=== PATIENT | male | born 1965 | race Caucasian/White ===

== ENCOUNTER 2021-07-28 00:53 | Day surgery (SDC) | payer BC, SELFPAY ==
[2021-07-16 14:32] VITALS: BMI 30.2
[2021-07-28 06:53] VITALS: BP 138/76; PULSE 73; RESP 16; TEMP 36.2; O2SAT 98; BMI 30.1
[2021-07-28] MEDS: LACTATED RINGERS 1,000 ML 150 ML IV CONT (07:07)
--- NOTE | 2021-07-28 07:09 | WPDANESEPPF ---
Anes - Initial Pre Proc Eval Procedure: Operation Date: 07/28/21 08:00 Proposed Procedures p Screening Colonoscopy - Tico Carcamo MD Date/Time: 07/28/21 07:09 Surgeon: Tico Carcamo MD Pre Op Diagnosis: hx of colon polyps z86.010 Patient Data Age: 56 Gender: M Height: 1.78 m Weight: 95.2 kg Last Vital Signs Temp 36.2 C L 07/28/21 06:53 Pulse 73 07/28/21 06:53 Resp 16 07/28/21 06:53 BP 138/76 07/28/21 06:53 Pulse Ox 98 07/28/21 06:53 Allergies Allergy/AdvReac Type Severity Reaction Status Date / Time amoxicillin Allergy Unknown Unknown Verified 07/28/21 06:52 Sulfa (Sulfonamide Allergy Unknown Unknown Verified 07/28/21 06:52 Antibiotics) Home Medications Medication Instructions Recorded Confirmed Type valacyclovir 500 mg tablet 500 mg PO DAILY 12/18/19 07/28/21 History diclofenac sodium 1.6 % topical 1 % TOPICAL 12/27/19 06/17/21 History gel packet fluticasone propionate 50 2 spray INTRANASAL DAILY 05/27/21 07/28/21 History mcg/actuation nasal spray,suspension loratadine 10 mg tablet 10 mg PO DAILY 05/27/21 07/28/21 History atorvastatin 40 mg tablet 40 mg PO QHS #90 tablet 06/02/21 07/28/21 Rx losartan 100 1 tablet PO DAILY #90 tablet 06/25/21 07/28/21 Rx mg-hydrochlorothiazide 25 mg tablet Patient hx anesthesia problems: none Family hx anesthesia problems: none Results Review: All pre-operative results and documents have been reviewed as part of the pre-operative evaluation. [facility] Past Medical History Medical History Bursitis of right hip 09/2008 Dyslipidemia Environmental allergies Essential (primary) hypertension GERD without esophagitis History of colon polyps RAFAT (obstructive sleep apnea) Recurrent genital herpes Umbilical hernia 2004 Surgical History Surgical History History of hernia surgery (~2005) History of tonsillectomy and adenoidectomy (~1966) [place] teeth extracted (~1979) Family History Family History Mother Family history of glaucoma Father Hypertension Family history of coronary artery disease Sibling Family history of cardiac disorder Grandparent Family history of lung cancer Family history of heart disease in male family member before age 55 Social History Social History Smoking status: Former smoker Tobacco type: cigarettes Second hand tobacco smoke exposure: No Smoking end date: 11/01/89 Alcohol intake: current Drinks per week: 10 Alcohol use details: socially Substance use: never Substance use type: does not use Living arrangements: with family Gender identity (if verbalized by the patient): Male Spiritual care concerns: No Agree to blood products: Yes Anes - Eval Final PreProcedure Day of Procedure 07/28/21 07:09 Patient weight: obese Heart: regular rate and rhythm Lungs: clear to auscultation Airway: Mallampati scale class II Neurological: alert and oriented Last oral intake: >/= 8 hours ASA classification: III Emergent: no Anesthetic plan: proceed Anesthesia type and monitoring: general GIVS and standard monitoring Results Review: All pre-operative results and documents have been reviewed as part of the pre-operative evaluation. Informed Consent: The patient's anesthetic plan and its attendant risks and benefits were discussed with the patient/family/POA. Questions were solicited and answers provided to the satisfaction of the patient/family/POA.
--- NOTE | 2021-07-28 07:17 | WPDGICN ---
Assessment and Plan Assessment and plan (1) History of colon polyps: Code(s): Z86.010 - Personal history of colonic polyps Status: Acute Assessment and Plan: Patient has a history of colon polyps last colonoscopy was 6 or 7 years ago. Plan is for surveillance colonoscopy at this time. Further recommendations will be given after endoscopy. GI Consult Note Consult date/time: 07/28/21 07:17 HPI: Damaris Rosales is a 56 year old male Presents for screening colonoscopy. Patient has a history of colon polyps. Most recently [address] Suarez. Patient reports his current weight appetite bowel movements are normal. Does have a prior history of inguinal hernia repair. He has had no bleeding. His family history is noncontributory. Review of Systems Review of Systems: All systems reviewed & are unremarkable except as noted in HPI and below PMFSH Past Medical History Medical History Bursitis of right hip 09/2008 Dyslipidemia Environmental allergies Essential (primary) hypertension GERD without esophagitis History of colon polyps RAFAT (obstructive sleep apnea) Recurrent genital herpes Umbilical hernia 2004 Surgical History Surgical History History of hernia surgery (~2005) History of tonsillectomy and adenoidectomy (~1966) [place] teeth extracted (~1979) Family History Family History Mother Family history of glaucoma Father Hypertension Family history of coronary artery disease Sibling Family history of cardiac disorder Grandparent Family history of lung cancer Family history of heart disease in male family member before age 55 Social History Social History Smoking status: Former smoker Tobacco type: cigarettes Second hand tobacco smoke exposure: No Smoking end date: 11/01/89 Alcohol intake: current Drinks per week: 10 Alcohol use details: socially Substance use: never Substance use type: does not use Living arrangements: with family Gender identity (if verbalized by the patient): Male Spiritual care concerns: No Agree to blood products: Yes Meds Home Medications and Allergies Home Medications Medication Instructions Recorded Confirmed Type valacyclovir 500 mg tablet 500 mg PO DAILY 12/18/19 07/28/21 History diclofenac sodium 1.6 % topical 1 % TOPICAL 12/27/19 06/17/21 History gel packet fluticasone propionate 50 2 spray INTRANASAL DAILY 05/27/21 07/28/21 History mcg/actuation nasal spray,suspension loratadine 10 mg tablet 10 mg PO DAILY 05/27/21 07/28/21 History atorvastatin 40 mg tablet 40 mg PO QHS #90 tablet 06/02/21 07/28/21 Rx losartan 100 1 tablet PO DAILY #90 tablet 06/25/21 07/28/21 Rx mg-hydrochlorothiazide 25 mg tablet Allergies Allergy/AdvReac Type Severity Reaction Status Date / Time amoxicillin Allergy Unknown Unknown Verified 07/28/21 06:52 Sulfa (Sulfonamide Allergy Unknown Unknown Verified 07/28/21 06:52 Antibiotics) Vital Signs Vital Signs - 24 hr 07/28/21 06:53 Temperature 97.2 F L Pulse Rate 73 Respiratory Rate 16 Blood Pressure 138/76 Pulse Oximetry 98 Exam Narrative: Physical exam reveals patient to be alert. Vital signs stable. HEENT exam is unremarkable. Patient is anicteric. Lungs are clear to auscultation and percussion. Heart is without murmur or extra sounds. Abdominal exam bowel sounds are present soft nontender with no organomegaly. Digital external rectal exam is normal.
[2021-07-28 08:00] VITALS: BP 112/61; PULSE 63; RESP 12; O2SAT 96
[2021-07-28 08:10] VITALS: BP 109/63; PULSE 57; RESP 17; O2SAT 100
[2021-07-28 08:20] VITALS: BP 114/63; PULSE 61; RESP 21; O2SAT 99
== END 2021-07-28 08:29 | disposition home or self-care (01) ==
PROVIDERS: PCP Family Medicine; Visit Provider Internal Medicine Gastroenterology
PROC: 0DJD8ZZ Inspection of Lower Intestinal Tract, Via Natural or Artificial Opening Endoscopic (ICD-10-PCS; CPT 45378; principal; 2021-07-28 08:00)
DX: Z12.11 Encounter for screening for malignant neoplasm of colon (principal); Z86.010 Personal history of colon polyps; K57.30 Diverticulosis of large intestine without perforation or abscess without bleeding; E78.5 Hyperlipidemia, unspecified; I10 Essential (primary) hypertension; K21.9 Gastro-esophageal reflux disease without esophagitis; G47.33 Obstructive sleep apnea (adult) (pediatric); Z87.891 Personal history of nicotine dependence; E66.9 Obesity, unspecified; Z68.30 Body mass index [BMI] 30.0-30.9, adult
CPT/HCPCS: 45378; J2704; J7120

== ENCOUNTER 2023-08-28 13:05 | Emergency (ER) | payer OTHER, SELFPAY ==
--- NOTE | 2023-08-28 13:09 | ED.WOUNDLAC ---
HPI - Wound/Laceration General Chief Complaint: Wound/Laceration Stated Complaint: Cut finger Time Seen by Provider: 08/28/23 13:09 Source: patient, RN notes reviewed and old records reviewed Mode of arrival: ambulatory Limitations: no limitations History of Present Illness HPI narrative: 58 year old male presents to the [facility] with a laceration to the dorsal aspect PIP joint right 5th finger. Happened approximately 3 hours prior to arrival. Per medical record last Tdap 2009. Patient unsure of if he has had 1 since. Bleeding is controlled. Full range of motion of the 5th finger Capillary refill under 2 seconds sensation intact Patient tetanus UTD: No (Per medical record 07/02/2010) Related Data Allergies Allergy/AdvReac Type Severity Reaction Status Date / Time amoxicillin Allergy Unknown Unknown Verified 08/28/23 13:52 Sulfa (Sulfonamide Allergy Unknown Unknown Verified 08/28/23 13:52 Antibiotics) Review of Systems Review of Systems: All systems reviewed & are unremarkable except as noted in HPI and below Constitutional: Constitutional: Reports no additional constitutional complaints Eyes: Eyes: Reports no additional eye complaints ENT: Reports system reviewed and no additional complaints, except as documented Cardiovascular: Cardiovascular: Reports no additional cardiovascular complaints, Denies chest pain and Denies dyspnea Respiratory: Respiratory: Reports no additional respiratory complaints, Denies chest congestion, Denies cough and Denies dyspnea Gastrointestinal: Gastrointestinal: Reports no additional gastrointestinal complaints, Denies abdominal pain, Denies nausea and Denies vomiting Musculoskeletal: Musculoskeletal: Reports no additional musculoskeletal complaints Integumentary/Breasts: Skin/Breast: Reports as per HPI and Reports wounds Neurologic: Reports system reviewed and no additional complaints, except as documented Psychiatric: Psychiatric: Reports no additional psychiatric complaints Allergic/Immunologic: Allergic/Immunologic: Reports no additional allergic/immunologic complaints [facility] Past Medical History Medical History Bursitis of right hip 09/2008 Dyslipidemia Environmental allergies Essential (primary) hypertension GERD without esophagitis History of colon polyps RAFAT (obstructive sleep apnea) Recurrent genital herpes Umbilical hernia 2004 Surgical History Surgical History History of hernia surgery (~2005) History of tonsillectomy and adenoidectomy (~1966) [place] teeth extracted (~1979) Family History Family History Mother Family history of glaucoma Father Hypertension Family history of coronary artery disease Sibling Family history of cardiac disorder Grandparent Family history of lung cancer Family history of heart disease in male family member before age 55 Social History Social History Smoking status: Former smoker Tobacco type: cigarettes Second hand tobacco smoke exposure: No Smoking end date: 11/01/89 Alcohol intake: current Drinks per week: 10 Alcohol use details: socially Substance use: never Substance use type: does not use Lack of Transportation: No Lack of Food: Never True Current Housing: I Have Housing Concerned About Future Housing: No Difficulty Paying Gas/Electric Bills: No Difficulty Paying for Meds: No Currently Unemployed: No Education: Master's Degree or Higher Difficulty w/ Childcare or Family Care: No Living arrangements: with family Occupation/Education: occupation Gender identity (if verbalized by the patient): Male Spiritual care concerns: No Agree to blood products: Yes Comments At the time of my signature, I reviewed and agree with the nursing past medical,
[2023-08-28 13:18] VITALS: BP 147/88; PULSE 105; RESP 16; TEMP 36.3; O2SAT 100
[2023-08-28] MEDS: TETANUS,DIPHTHERIA,AC PERTUSSIS ADULT (0.5 ML) BOOSTRIX IM (15:17)
== END 2023-08-28 14:00 | disposition home or self-care (01) ==
PROVIDERS: Emergency Provider Nurse Practitioner; PCP Family Medicine
DX: S61.227A Laceration with foreign body of left little finger without damage to nail, initial encounter (principal); X58.XXXA Exposure to other specified factors, initial encounter; Z23 Encounter for immunization; Z87.891 Personal history of nicotine dependence; E78.5 Hyperlipidemia, unspecified; I10 Essential (primary) hypertension; K21.9 Gastro-esophageal reflux disease without esophagitis
CPT/HCPCS: 12001; 90471; 90715; 99212; G0463

== ENCOUNTER 2024-05-15 07:53 | Outpatient (CLI) | payer BC, SELFPAY | END 2024-05-15 07:54 | PROVIDERS: PCP Anesthesiology Pain Medicine; Visit Provider Anesthesiology Pain Medicine | DX: M25.562 Pain in left knee (principal) | CPT/HCPCS: 73562 ==